=== PATIENT | female | born 1960 | race Caucasian/White ===

== ENCOUNTER 2017-01-07 16:27 | Observation (INO) | payer BC ==
[~2017-01-07 16:27] MED LIST: DIPRIVAN VIAL ONE; EPHEDRINE SULFATE INJ ONE; NEO-SYNEPHRINE INJ ONE; NEOSTIGMINE INJ ONE; NORCURON INJ 10 MG VIAL ONE; QUELICIN (OR ANECTINE) ONE; ROBINUL ONE; SUPRANE IN ONE; VERSED ONE; XYLOCAINE 2 % (PLAIN) ONE; ZOFRAN INJ 4 MG VIAL ONE
[2017-01-07] MEDS ORDERED: ANCEF VIAL 1 GM ONE (16:37)
[2017-01-07] MEDS ORDERED: DILAUDID INJ ONE (16:42)
[2017-01-07] MEDS ORDERED: FENTANYL INJ 250 mcg ONE (16:42)
[2017-01-07] MEDS ORDERED: DECADRON INJ ONE (16:43)
[2017-01-07] MEDS: NS 100 ML IV 100 ML IV ONE ×2 (16:57→17:00)
[2017-01-07] MEDS: NS 1000 ML 1,000 ML IV SCH ×2 (17:00→17:03)
[2017-01-07] MEDS ORDERED: MARCAINE 0.25% INJ ONE (17:00)
[2017-01-07] MEDS ORDERED: XYLOCAINE 2% and EPINEPHRINE 1:100,000 ONE (17:00)
--- NOTE | 2017-01-07 17:17 | DR.CARTERH ---
Dr. Benites H&P - History & Physical for of: H&P Date: 01/07/17 - Chief Complaint Chief Complaint: Right lower quadrant abdominal pain. - Allergies Allergies/Adverse Reactions: Allergies Allergy/AdvReac Type Severity Reaction Status Date / Time No Known Drug Allergies Allergy Verified 01/07/17 17:10 - History of Present Illness History of Present Illness: The patient is a 56 year old female who presented to her primary care doctor with abdominal pain times 1 week. The pain started periumbilical and has worsened over the past week. The patient underwent an EGD that did not demonstrate any significant peptic ulcer disease. A CT of the abdomen and pelvis was then obtained that showed intra-abdominal inflammatory changes but no definitive pathology. The appendix was not visualized. (-) fever /chills. The pain localized to the right lower quadrant and intensified. (-) dysuria or hematuria. No diarrhea or constipation. SHe does have a remote history of c. diff colitis. (-) f/h inflammatory bowel disease. No recent antibiotics. She is s/p lap annabelle. - Past Medical History Past Medical History: GERD - Past Surgical History Surgical History: Cholecystectomy - Social History Does patient currently use any type of tobacco product: No Type of Tobacco Use: None Alcohol Use: None Drug Use: None - Review of Systems Constitutional: No Symptoms Reported Eyes: No Symptoms Reported ENT: No Symptoms Reported Respiratory: No Symptoms Reported Cardiovascular: No Symptoms Reported Gastrointestinal: Abdominal Pain Genitourinary: No Symptoms Reported Musculoskeletal: No Symptoms Reported Skin: No Symptoms Reported Neurological: No Symptoms Reported - Physical Exam Vital Signs: Temperature 97.1 F Pulse Rate 80 Respiratory Rate 20 Blood Pressure 146/77 O2 Sat by Pulse Oximetry 96 Oriented: Normal Eyes: Normal Ear: Normal Nose: Normal Respiratory: Clear Throughout Cardiovascular: Normal Auscultation: Bowel Sounds: Normal Palpation: Normal, Other (Periumbilical hernia (small)) Tenderness: RLQ (Focal peritonitis.), Guarding Skin: Normal Musculoskeletal: Normal Psychiatric: Normal Mood Description: Calm Affect: Normal Speech Pattern: Clear, Appropriate - Assessment/Plan Assessment/Plan: Right lower quadrant pain
[2017-01-07] MEDS ORDERED: LR 1000 ML IV 1,000 ML IV ONE (17:57)
[2017-01-07] MEDS ORDERED: NS IRRIGATION 3000 ML 3,000 ML IR ONE (18:33)
[2017-01-07] MEDS ORDERED: FENTANYL INJ 100 mcg ONE (18:41)
[2017-01-07] MEDS ORDERED: ZOFRAN INJ 4 MG VIAL IVP PRN (19:39)
[2017-01-07] MEDS ORDERED: REGLAN INJ 10 MG VIAL IVP PRN (19:39)
[2017-01-07] MEDS ORDERED: DILAUDID INJ IVP PRN (19:39)
[2017-01-07] MEDS ORDERED: PHENERGAN INJ 25 MG IVP PRN (19:39)
[2017-01-07] MEDS ORDERED: BENADRYL INJ 50 MG VIAL IVP PRN (19:39)
--- NOTE | 2017-01-07 20:43 | OR.GENERIC ---
Post-Op Note Generic - Post-Op Note Operative Report: Date of Operation: January 07, 2017 Pre-Operative Diagnosis: 1. Right lower quadrant pain. 2. Abnormal CT of abdomen/pelvis. Post-Operative Diagnosis: Omental infarction with necrosis. Procedure: Diagnostic laparoscopy, abdominal washout, and omental necrosectomy. Surgeon: Gabriele Calix MD. [employer]: Doug Acosta CRNA. Specimen: Necrotic omentum. Estimated blood loss: Minimal. Complications: None. Summary: The patient is a 56 year old female who presented with worsening right lower quadrant pain. A CT of the abdomen and pelvis demonstrated inflammatory changes but could not identify the appendix. The patient was offered diagnostic laparoscopy and possible appendectomy. The risk and benefits of the procedure including difficulty with anesthesia, bleeding, infection, conversion to open procedure, hernia formation, persistent pain, DVT, as well as PE were discussed with the patient. The patient understood these risks and requested the procedure. On January 07, 2017, the patient was brought to the operative theatre. A time out was performed verifying the patient and procedure. The patient received Ancef for pre-operative antibiosis. After satisfactory induction of general endotracheal anesthesia, the abdomen was prepped with Chloraprep and draped in the usual sterile fashion. The skin and subcutaneous tissue inferior to the umbilicus was anesthetized using local anesthetic. The skin was incised sharply. A 12 mm trocar was placed though the incision and into the peritoneal cavity using the Eric technique. Carbon dioxide was infiltrated through this trocar to obtain a pneumoperitoneum of 15 mm Hg. A camera was placed through this trocar and swept in all directions. No injury was seen from entering the peritoneal cavity. A site was selected in the right upper quadrant for our 2 nd trocar. The skin and fascia was anesthetized using local anesthetic. The skin was incised sharply. A 5 mm trocar was placed into the peritoneal cavity under direct visualization. An additional 5 mm trocar was placed in the left lower quadrant in a similar fashion. Upon inspection of the peritoneal cavity, necrotic omentum was attached to the anterior abdominal wall in the right lower quadrant. The omentum was clipped and divided bluntly. The necrotic omentum was removed using an endopouch through the umbilical incision. The camera was placed back inside the abdomen. The cecum was inspected. The terminal ileum appeared normal. No appendix was identified. There was no inflammation at the cecum. However, due to non-diagnostic imaging, concern was present for a retrocecal appendix. Therefore, the right colon was mobilized medially using blunt dissection. The cecum was inspected along the lateral and retroperitoneal surfaces and no appendix seen. At this point, the remainder of the abdomen was inspected. No inflammation was seen in the upper abdomen. The transverse colon was noted to be loosely anchored and draped to the level of the umbilicus. The portion of omentum that contained the necrotic tissue was anchored to the transverse colon. The abdomen was then copiously irrigated. All irrigation fluid was removed. The 5 mm trocars were removed under direct visualization and no bleeding seen. The umbilical trocar was removed and insufflation evacuated. The fascia at the umbilicus was re-approximated using a 0-Vicryl placed in a [id number] configuration. The skin edges at all incisions were re-approximated using inverted, interrupted 4-0 Monocryl sutures. Benzoin and Steri-strips were placed. Sterile dressings were placed. The patient was awakened and taken to the recovery room in stable condition. There were no complications. All counts were correct.
[2017-01-07 21:04] LABS: BILIRUBIN,URINE NEGATIVE (NEGATIVE); BLOOD/HEMOGLOBIN,URINE 5+ (NEGATIVE); GLUCOSE, URINE NEGATIVE (NEGATIVE); KETONES,URINE 1+ (NEGATIVE); LEUKOCYTE ESTERASE ,URINE 1+ (NEGATIVE); NITRITES,URINE NEGATIVE (NEGATIVE); PROTEIN,URINE 3+ (NEGATIVE); UROBILINOGEN,URINE NORMAL (NORMAL)
[2017-01-07 21:09] LABS: APPEARANCE,URINE HAZY (CLEAR); COLOR,URINE YELLOW (YELLOW); RBC,URINE 20-25 /HPF (NEGATIVE)
[2017-01-07 21:10] LABS: BACTERIA,URINE TRACE /HPF (NEGATIVE); SQUAMOUS EPITHELIAL CELL,UR NEGATIVE /HPF (NEGATIVE)
[2017-01-07 21:16] LABS: BASOPHILS % (AUTO) 0.3 % (0.2-1.0); EOSINOPHILS % (AUTO) 0.1 % (0.9-2.9); HEMATOCRIT 35.6 % (36.0-47.0); HEMOGLOBIN 12.3 g/dL (12.0-16.0); LYMPHOCYTES # (AUTO) 0.5 X10^3/uL (1.3-2.9); LYMPHOCYTES % (AUTO) 4.3 % (21.0-51.0); MEAN CORPUSCULAR HEMOGLOBIN 29.7 pg (27.0-34.0); MEAN CORPUSCULAR HGB CONC 34.6 g/dL (33.0-35.0); MEAN CORPUSCULAR VOLUME 85.9 fL (80.0-100.0); MEAN PLATELET VOLUME 7.1 fL (7.4-11.0); MONOCYTES # (AUTO) 0.2 x10^3/uL (0.3-0.8); MONOCYTES % (AUTO) 1.9 % (0.0-13.0); NEUTROPHILS # (AUTO) 9.9 x10^3/uL (2.2-4.8); NEUTROPHILS % (AUTO) 93.4 % (42.0-75.0); PLATELET COUNT 173 X10^3/uL (150.0-450.0); RED BLOOD COUNT 4.15 X10^6/uL (3.5-5.4); RED CELL DISTRIBUTION WIDTH 13.7 % (11.6-16.5); WHITE BLOOD COUNT 10.6 X10^3/uL (3.6-10.0)
[2017-01-07] MEDS: FLAGYL IV PREMIX 500 MG BAG 500 MG/100 ML BAG IV SCH (21:25)
[2017-01-07 21:30] LABS: ALANINE AMINOTRANSFERASE 70 Units/L (12-78); ALBUMIN 3.1 g/dL (3.4-5.0); ALKALINE PHOSPHATASE 125 Units/L (46-116); ASPARTATE AMINO TRANSFERASE 89 Units/L (15-37); BAND NEUTROPHILS % 4 % (0-10); BLOOD UREA NITROGEN 16 mg/dL (7-18); CALCIUM 8.3 mg/dL (8.5-10.1); CARBON DIOXIDE 29.2 mmol/L (21-32); CHLORIDE 105 mmol/L (98-107); COR NA(FOR HYPERGLY) 142 mmol/L (136-145); CREATININE 0.91 mg/dL (0.55-1.02); PLATELET MORPHOLOGY COMMENT NORMAL (NORMAL); SODIUM 140 mmol/L (136-145); TOTAL PROTEIN 6.2 g/dL (6.4-8.2); eGFR BLACK RACES > 60 (>60); eGFR NON BLACK RACES > 60 (>60)
[2017-01-07] MEDS: NORCO 5/325 MG TAB PO PRN (21:56)
[2017-01-07] MEDS: CIPRO IV 400 MG PREMIX* 400 MG/200 ML IV.SOLN. IV SCH (21:58)
[2017-01-07 23:44] VITALS: BMI 27.7
[2017-01-08] MEDS: FLAGYL IV PREMIX 500 MG BAG 500 MG/100 ML BAG IV SCH ×3 (02:26→14:04)
[2017-01-08] MEDS: NORCO 5/325 MG TAB PO PRN ×2 (02:26→13:07)
[2017-01-08] MEDS: NS 1000 ML 1,000 ML IV SCH ×2 (02:27→06:01)
[2017-01-08 05:39] LABS: BASOPHILS % (AUTO) 0.1 % (0.2-1.0); HEMATOCRIT 34.8 % (36.0-47.0); HEMOGLOBIN 12.1 g/dL (12.0-16.0); LYMPHOCYTES # (AUTO) 0.4 X10^3/uL (1.3-2.9); LYMPHOCYTES % (AUTO) 5.3 % (21.0-51.0); MEAN CORPUSCULAR HEMOGLOBIN 29.7 pg (27.0-34.0); MEAN CORPUSCULAR HGB CONC 34.8 g/dL (33.0-35.0); MEAN CORPUSCULAR VOLUME 85.6 fL (80.0-100.0); MEAN PLATELET VOLUME 7.4 fL (7.4-11.0); MONOCYTES # (AUTO) 0.2 x10^3/uL (0.3-0.8); NEUTROPHILS # (AUTO) 6.5 x10^3/uL (2.2-4.8); NEUTROPHILS % (AUTO) 91.6 % (42.0-75.0); PLATELET COUNT 171 X10^3/uL (150.0-450.0); RED BLOOD COUNT 4.06 X10^6/uL (3.5-5.4); RED CELL DISTRIBUTION WIDTH 13.6 % (11.6-16.5); WHITE BLOOD COUNT 7.1 X10^3/uL (3.6-10.0)
[2017-01-08 05:50] LABS: ALANINE AMINOTRANSFERASE 67 Units/L (12-78); ALKALINE PHOSPHATASE 119 Units/L (46-116); ASPARTATE AMINO TRANSFERASE 56 Units/L (15-37); BLOOD UREA NITROGEN 13 mg/dL (7-18); CALCIUM 8.8 mg/dL (8.5-10.1); CARBON DIOXIDE 25.8 mmol/L (21-32); CHLORIDE 105 mmol/L (98-107); COR CA(FOR HYPOALB) 9.6 mg/dL (8.5-10.1); COR NA(FOR HYPERGLY) 140 mmol/L (136-145); CREATININE 0.84 mg/dL (0.55-1.02); SODIUM 139 mmol/L (136-145); TOTAL PROTEIN 6.1 g/dL (6.4-8.2); eGFR BLACK RACES > 60 (>60); eGFR NON BLACK RACES > 60 (>60)
[2017-01-08 06:31] LABS: PLATELET MORPHOLOGY COMMENT NORMAL (NORMAL)
[2017-01-08] MEDS: CIPRO IV 400 MG PREMIX* 400 MG/200 ML IV.SOLN. IV SCH (08:41)
[2017-01-08] MEDS ORDERED: PROTONIX INJ 40 MG VIAL IVP SCH (09:00)
[2017-01-08] MEDS ORDERED: LOVENOX INJ 30 MG SYR SC SCH (09:00)
--- NOTE | 2017-01-08 15:01 | PCM.PROG ---
Progress Note - Progress Note for Day of Date: 01/08/17 - Subjective Subjective: Pre-operative pain resolved. Admits to umbilical / surgical pain. (+) ambulating. Tolerating diet. - Past Medical Family Social History Allergies: Allergies No Known Drug Allergies Allergy (Verified 01/07/17 17:10) - Vital Signs and I&O's Vital Signs: Temperature 98 F Pulse Rate [Radial] 73 Pulse Rate [Left Radial] 64 Pulse Rate 79 Respiratory Rate 18 Blood Pressure [Left Arm] 110/67 Blood Pressure 102/61 O2 Sat by Pulse Oximetry 94 Intake and Output: Intake & Output 01/06/17 01/07/17 01/08/17 01/09/17 11:59 11:59 11:59 11:59 Intake Total 1340 930 Output Total 2500 Balance -1160 930 - Physical Exam Oriented: Normal Eyes: Normal Ear: Normal Nose: Normal Cardiovascular: Normal Auscultation: Bowel Sounds: Normal Tenderness: Other (Approp. TTP. Dressings C/D/I.) Skin: Normal Musculoskeletal: Normal Psychiatric: Normal Mood Description: Calm Affect: Normal Speech Pattern: Clear, Appropriate - Laboratory and Diagnostics Result Diagrams: 01/08/17 04:27 01/08/17 04:27 Labs: Laboratory WBC 7.1 X10^3/uL (3.6-10.0) 01/08/17 04:27 RBC 4.06 X10^6/uL (3.5-5.4) 01/08/17 04:27 Hgb 12.1 g/dL (12.0-16.0) 01/08/17 04:27 Hct 34.8 % (36.0-47.0) L 01/08/17 04:27 MCV 85.6 fL (80.0-100.0) 01/08/17 04:27 MCH 29.7 pg (27.0-34.0) 01/08/17 04:27 MCHC 34.8 g/dL (33.0-35.0) 01/08/17 04:27 RDW 13.6 % (11.6-16.5) 01/08/17 04:27 Plt Count 171 X10^3/uL (150.0-450.0) 01/08/17 04:27 Plt Count Comment Adequate (ADEQUATE) 01/08/17 04:27 MPV 7.4 fL (7.4-11.0) 01/08/17 04:27 Neut % 91.6 % (42.0-75.0) H 01/08/17 04:27 Lymph % 5.3 % (21.0-51.0) L 01/08/17 04:27 [place] % 3.0 % (0.0-13.0) 01/08/17 04:27 Eos % 0.0 % (0.9-2.9) L 01/08/17 04:27 Baso % 0.1 % (0.2-1.0) L 01/08/17 04:27 Neut # 6.5 x10^3/uL (2.2-4.8) H 01/08/17 04:27 Lymph # 0.4 X10^3/uL (1.3-2.9) L 01/08/17 04:27 [place] # 0.2 x10^3/uL (0.3-0.8) L 01/08/17 04:27 Eos # 0.0 x10^3/uL (0.0-0.2) 01/08/17 04:27 Baso # 0.0 X10^3/uL (0.0-0.1) 01/08/17 04:27 Absolute Nucleated RBC 0.1 /100WBC 01/08/17 04:27 Total Counted 100 01/08/17 04:27 Neutrophils % (Manual) 93 % (39-76) H 01/08/17 04:27 Band Neutrophils % 4 % (0-10) 01/07/17 20:55 Lymphocytes % (Manual) 4 % (13-43) L 01/08/17 04:27 Monocytes % (Manual) 3 % (4-9) L 01/08/17 04:27 Plt Morphology Comment Normal (NORMAL) 01/08/17 04:27 RBC Morphology Normal (NORMAL) 01/08/17 04:27 Sodium 139 mmol/L (136-145) 01/08/17 04:27 Corrected Sodium 140 mmol/L (136-145) 01/08/17 04:27 Potassium 4.3 mmol/L (3.5-5.1) 01/08/17 04:27 Chloride 105 mmol/L (98-107) 01/08/17 04:27 Carbon Dioxide 25.8 mmol/L (21-32) 01/08/17 04:27 BUN 13 mg/dL (7-18) 01/08/17 04:27 Creatinine 0.84 mg/dL (0.55-1.02) 01/08/17 04:27 Est GFR (MDRD) Af Amer > 60 (>60) 01/08/17 04:27 Est GFR (MDRD) Non-Af > 60 (>60) 01/08/17 04:27 Glucose 135 mg/dL (65-99) H 01/08/17 04:27 Calcium 8.8 mg/dL (8.5-10.1) 01/08/17 04:27 Corrected Calcium 9.6 mg/dL (8.5-10.1) 01/08/17 04:27 Total Bilirubin 0.40 mg/dL (0.2-1.0) 01/08/17 04:27 AST 56 Units/L (15-37) H 01/08/17 04:27 ALT 67 Units/L (12-78) 01/08/17 04:27 Alkaline Phosphatase 119 Units/L (46-116) H 01/08/17 04:27 Total Protein 6.1 g/dL (6.4-8.2) L 01/08/17 04:27 Albumin 3.0 g/dL (3.4-5.0) L 01/08/17 04:27 Globulin 3.1 g/dL (2.5-4.5) 01/08/17 04:27 Albumin/Globulin Ratio 1.0 Ratio (1.1-2.1) L 01/08/17 04:27 Specimen Type Catherized urine 01/07/17 19:57 Urine Color Yellow (YELLOW) 01/07/17 19:57 Urine Appearance Hazy (CLEAR) 01/07/17 19:57 Urine pH 5.0 (5.0 - 8.0) 01/07/17 19:57 Ur Specific [place] 1.020 (1.000-1.030) 01/07/17 19:57 Urine Protein 3+ (NEGATIVE) 01/07/17 19:57 Urine Glucose (UA) Negative (NEGATIVE) 01/07/17 19:57 Urine Ketones 1+ (NEGATIVE) 01/07/17 19:57 Urine Occult Blood 5+ (NEGATIVE) 01/07/17 19:57 Urine Nitrite Negative (NEGATIVE) 01/07/17 19:57 Urine Bilirubin Negative (NEGATIVE) 01/07/17 19:57 Urine Urobilinogen Normal (NORMAL) 01/07/17 19:57 Ur Leukocyte Esterase 1+ (NEGATIVE) 01/07/17 19:57 Urine RBC 20-25 /HPF (NEGATIVE) 01/07/17 19:57 Urine WBC 0-2 /HPF (NEGATIVE) 01/07/17 19:57 Ur Squamous Epith Cells Negative /HPF (NEGATIVE) 01/07/17 19:57 Urine Bacteria Trace /HPF (NEGATIVE) 01/07/17 19:57 Ur Culture Indicated? No/not indicated 01/07/17 19:57 Tissue Pathology To follow 01/07/17 19:56 - Plan (1) Right lower quadrant abdominal pain Status: Resolved Plan: RLQ pain resolved. Stable post-op. Advance diet as tolerated. Discharge home. Routine post-op care.
[2017-01-08 16:01] VITALS: BP 105/58
== END 2017-01-08 16:00 | disposition home or self-care (01) ==
LOC: MED/SURG 16:27
PROVIDERS: ADMIT Internal Medicine; ATTEND Internal Medicine
PROC: 0WJP4ZZ Inspection of Gastrointestinal Tract, Percutaneous Endoscopic Approach (ICD-10-PCS; 2017-01-07)
PROC: 0DBU4ZZ Excision of Omentum, Percutaneous Endoscopic Approach (ICD-10-PCS; principal; 2017-01-07 17:00)
DX: R10.31 Right lower quadrant pain (principal); K55.049 Acute infarction of large intestine, extent unspecified; R93.8 Abnormal findings on diagnostic imaging of other specified body structures; R74.8 Abnormal levels of other serum enzymes
CPT/HCPCS: 36415; 80053; 81001; 85025; 94760; A4216; A4222; S0020; S0030; G0378; J0330; J0690; J0744; J1100; J1170; J1650; J2001; J2250; J2370; J2405; J2710; J3010; J3490; J7120